=== PATIENT | female | born 1990 | race American Indian/Alaskan Native ===

== ENCOUNTER 2020-04-30 19:19 | Emergency (ER) | payer SELFPAY ==
[2020-04-30 20:05] VITALS: BP 118/71
== END 2020-05-01 03:35 | disposition left against medical advice (07) ==
LOC: ED 19:19
DX: K62.89 Other specified diseases of anus and rectum (principal); Z53.21 Procedure and treatment not carried out due to patient leaving prior to being seen by health care provider